=== PATIENT | female | born 1970 | race Caucasian/White ===

== ENCOUNTER 2019-06-27 14:09 | Emergency (ER) | payer BC ==
[~2019-06-27] VITALS: Ht 157.5 cm; Wt 56.7 kg
[2019-06-27 14:12] VITALS: BP_SYST 129
--- NOTE | 2019-06-27 14:36 | NUR ---
Patient to ER bed 7 to gown for evaluation. Side rails up. Report given to Kayla DURBIN.
[2019-06-27] MEDS ORDERED: MECLIZINE HCL 25 MG TABLET (ANITVERT) PO ONE (15:00)
[2019-06-27] MEDS ORDERED: ONDANSETRON 4 MG ODT TAB PO ONE (15:00)
--- NOTE | 2019-06-27 15:00 | NUR ---
ECG done at bedside as ordered by MD. Patient tolerated the procedure well. Report given to .
--- NOTE | 2019-06-27 15:00 | NUR ---
Patient arrived in the ED c/o dizziness and vomiting (x5), sweats, chills and a mild headache that started at 12:30 today. Patient is a&o x4, respirations even and unlabored, VS WNL, denied any respiratory distress at this time. Pain severity 3/10. Denied any recent falls. Will continue to monitor.
--- NOTE | 2019-06-27 15:03 | NUR ---
Administered Zofran and Meclizine as ordered by MD. Patient tolerated the medications well. Please refer to eMAR for details.
[2019-06-27 15:24] LABS: BASOPHILS # (AUTO) 0.1 K/uL (0.0-0.2); BASOPHILS % (AUTO) 0.9 % (0.0-2.0); EOSINOPHILS # (AUTO) 0.1 K/uL (0.0-0.4); EOSINOPHILS % (AUTO) 1.3 % (0.0-4.0); HEMATOCRIT 40.4 % (36-48); HEMOGLOBIN 13.5 g/dL (12.0-16.0); LYMPHOCYTES # (AUTO) 1.4 K/uL (1.0-5.5); LYMPHOCYTES % (AUTO) 18.5 % (20.5-51.5); MEAN CORPUSCULAR HEMOGLOBIN 30 pg (27-31); MEAN CORPUSCULAR HGB CONC 34 % (32-36); MEAN CORPUSCULAR VOLUME 91 fL (79.0-98.0); MONOCYTES # (AUTO) 0.3 K/uL (0.0-1.0); MONOCYTES % (AUTO) 4.4 % (1.7-9.3); NEUTROPHILS # (AUTO) 5.7 K/uL (1.8-7.7); NEUTROPHILS % (AUTO) 74.9 % (40.0-70.0); PLATELET COUNT (AUTO) 213 K/uL (130-430); RED BLOOD CELL COUNT(AUTO) 4.46 MIL/uL (4.2-6.2); RED CELL DISTRIBUTION WIDTH 13.4 % (9.0-15.0); WHITE BLOOD COUNT (AUTO) 7.6 K/uL (4.8-10.8)
--- NOTE | 2019-06-27 15:35 | NUR ---
Patient came back from CT in a stable condition. Friend at bedside.
--- NOTE | 2019-06-27 15:35 | NUR ---
Report given to GIFTY Ta.
[2019-06-27 15:48] LABS: CALCIUM 8.9 mg/dL (8.4-11.0); CREATININE 0.8 mg/dL (0.55-1.30); POTASSIUM 3.7 mmol/L (3.5-5.1)
[2019-06-27 15:52] LABS: ALBUMIN 4.2 g/dL (3.4-4.8); TOTAL BILIRUBIN 0.4 mg/dL (0.0-1.0)
--- NOTE | 2019-06-27 16:09 | NUR ---
Patient given written and verbal discharge instructions and verbalizes understanding. ER MD discussed with patient the results and treatment provided. Patient in stable condition. ID arm band removed. Rx of antivert, meclizine given. Patient educated on pain management and to follow up with PMD. Pain Scale 0/10. Opportunity for questions provided and answered. Medication side effect fact sheet provided.
[2019-06-27 16:10] VITALS: BP_SYST 111
== END 2019-06-27 16:10 | disposition home or self-care (01) ==
LOC: SED 14:09
DX: H81.10 Benign paroxysmal vertigo, unspecified ear (principal); F32.9 Major depressive disorder, single episode, unspecified
CPT/HCPCS: 36415; 70450; 80053; 85025; 93005; 99284; J8597; Q0162